=== PATIENT | female | born 1975 | race Caucasian/White ===

== ENCOUNTER 2017-03-04 11:01 | Emergency (ER) | payer BC ==
[~2017-03-04] VITALS: Ht 167.6 cm; Wt 109.8 kg
[2017-03-04] MEDS ORDERED: CLON0.1T PO (11:23)
[2017-03-04] MEDS ORDERED: OMEP20TA68 PO (11:23)
[2017-03-04] MEDS ORDERED: RIZA5TAB18 PO (11:23)
[2017-03-04] MEDS ORDERED: AMIT10TA6 PO (11:23)
[2017-03-04] MEDS ORDERED: GABA-534 PO (11:23)
[2017-03-04] MEDS ORDERED: FLUO-120 PO (11:23)
[2017-03-04] MEDS ORDERED: TRAZ-147 PO (11:23)
--- NOTE | 2017-03-04 11:41 | NUR ---
AT BEDSIDE PERFORMING MSE
[2017-03-04] MEDS: methylPREDNISolone ACETATE 40 MG VIAL IM ONE (12:04)
[2017-03-04 12:07] VITALS: BP 121/84
--- NOTE | 2017-03-04 12:07 | NUR ---
Patient discharged to home in stable conditon. Written and verbal after care instructions given. Patient verbalizes understanding of instructions. No further questions or concerns noted prior on leaving the ED.
[2017-03-04] MEDS ORDERED: methylPREDNISolone ACETATE 40 MG VIAL ONE (12:11)
== END 2017-03-04 12:15 | disposition home or self-care (01) ==
LOC: ER 11:01
DX: M17.0 Bilateral primary osteoarthritis of knee (principal); I10 Essential (primary) hypertension; F32.9 Major depressive disorder, single episode, unspecified; K21.9 Gastro-esophageal reflux disease without esophagitis; G43.909 Migraine, unspecified, not intractable, without status migrainosus; F17.200 Nicotine dependence, unspecified, uncomplicated; F10.10 Alcohol abuse, uncomplicated; Z88.6 Allergy status to analgesic agent
CPT/HCPCS: A4663; J1030